=== PATIENT | male | born 1960 | race Caucasian/White ===

== ENCOUNTER → 2017-10-18 | Outpatient (CLI) | payer BC | END | disposition home or self-care (01) | LOC: CFH 09:34 | PROVIDERS: ATTEND Internal Medicine | DX: M51.16 Intervertebral disc disorders with radiculopathy, lumbar region (principal); M48.07 Spinal stenosis, lumbosacral region | CPT/HCPCS: 72148 ==

== ENCOUNTER 2019-06-12 11:59 | Emergency (ER) | payer BC, OTHER ==
[~2019-06-12] VITALS: Ht 170.2 cm; Wt 105.6 kg
[2019-06-12 16:32] VITALS: BP 125/74
== END 2019-06-12 16:35 | disposition home or self-care (01) ==
LOC: ED 15:57
DX: M51.16 Intervertebral disc disorders with radiculopathy, lumbar region (principal); E11.9 Type 2 diabetes mellitus without complications; M10.9 Gout, unspecified
CPT/HCPCS: 36415; 72148; 80048; 82040; 85025; 96372; 99284; J1885

== ENCOUNTER → 2020-10-06 | Outpatient (CLI) | payer BC ==
[~2020-10-06] MED LIST: GLIM2TAB7 PO; INDO50CA15 PO; SERT25TA3 PO
== END | disposition home or self-care (01) ==
LOC: CVU 08:29
PROVIDERS: ATTEND Internal Medicine Cardiovascular Disease
DX: I08.0 Rheumatic disorders of both mitral and aortic valves (principal); E78.5 Hyperlipidemia, unspecified; I11.9 Hypertensive heart disease without heart failure; R01.1 Cardiac murmur, unspecified; Z85.6 Personal history of leukemia
CPT/HCPCS: 93306; 93356

== ENCOUNTER → 2021-02-17 | Outpatient (CLI) | payer BC ==
[~2021-02-17] MED LIST changes: +SERT-331 PO; -SERT25TA3 PO
== END | disposition home or self-care (01) ==
LOC: CFH 08:29
PROVIDERS: ATTEND Nurse Practitioner Family
DX: I06.1 Rheumatic aortic insufficiency (principal); R01.1 Cardiac murmur, unspecified
CPT/HCPCS: 93306

== ENCOUNTER → 2021-04-12 | Outpatient (CLI) | payer BC ==
[~2021-04-12] MED LIST changes: +METOPROLOL 1 MG/ML, 5ML ONE; +VISIPAQUE 320 MG/ML, 150ML BOTTLE ONE
== END | disposition home or self-care (01) ==
LOC: CVU 09:48
PROVIDERS: ATTEND Internal Medicine Cardiovascular Disease
DX: C91.10 Chronic lymphocytic leukemia of B-cell type not having achieved remission (principal); I65.23 Occlusion and stenosis of bilateral carotid arteries; N32.89 Other specified disorders of bladder; I35.8 Other nonrheumatic aortic valve disorders; E11.9 Type 2 diabetes mellitus without complications; R01.1 Cardiac murmur, unspecified
CPT/HCPCS: 71275; 74174; 93880; Q9967

== ENCOUNTER 2021-04-26 08:30 | Day surgery (SDC) | payer BC ==
[~2021-04-26] VITALS: Ht 170.2 cm; Wt 105.3 kg
[~2021-04-26 08:30] MED LIST changes: -METOPROLOL 1 MG/ML, 5ML ONE; -VISIPAQUE 320 MG/ML, 150ML BOTTLE ONE
[2021-04-26 09:09] VITALS: BP 150/84
[2021-04-26] MEDS ORDERED: ALLO300T PO (09:17)
[2021-04-26] MEDS ORDERED: SITA25TA PO (09:17)
[2021-04-26] MEDS ORDERED: ENAL20TA9 PO (09:17)
[2021-04-26] MEDS ORDERED: METF500T17 PO (09:17)
[2021-04-26] MEDS ORDERED: ZOLP-413 PO (09:17)
[2021-04-26] MEDS ORDERED: IBRU140C PO (09:17)
[2021-04-26] MEDS ORDERED: ATOR20TA PO (09:17)
[2021-04-26] MEDS ORDERED: SODIUM CHLORIDE 0.9% 1,000 ML IV SCH (09:30)
[2021-04-26] MEDS ORDERED: LIDOCAINE-MPF 1%, 5ML ONE (09:45)
== END 2021-04-26 11:44 | disposition home or self-care (01) ==
LOC: OUT 08:30
PROVIDERS: ATTEND Specialist
DX: C91.10 Chronic lymphocytic leukemia of B-cell type not having achieved remission (principal); C77.0 Secondary and unspecified malignant neoplasm of lymph nodes of head, face and neck; I10 Essential (primary) hypertension; E11.9 Type 2 diabetes mellitus without complications; E78.5 Hyperlipidemia, unspecified; M10.9 Gout, unspecified; G47.30 Sleep apnea, unspecified; Z79.4 Long term (current) use of insulin; Z79.899 Other long term (current) drug therapy; Z98.890 Other specified postprocedural states; Z80.3 Family history of malignant neoplasm of breast; Z82.49 Family history of ischemic heart disease and other diseases of the circulatory system
CPT/HCPCS: 38505; 76942; 82962; 88305; 88341; 88342; J7030

== ENCOUNTER 2021-05-25 06:01 | Inpatient (IN) | payer BC ==
[~2021-05-25] VITALS: Ht 170.2 cm; Wt 105.6 kg
[~2021-05-25 06:01] MED LIST changes: +ALLO300T PO; +ASPI81TA45 PO; +ATOR20TA PO; +ATOR40TA78 PO; +ENAL20TA9 PO; +IBRU140C PO; +METF500T17 PO; +SITA25TA PO; +TICA90TA PO; +ZOLP-413 PO
[2021-05-25 06:27] VITALS: BP 103/72
[2021-05-25] MEDS ORDERED: SODIUM CHLORIDE 0.9% 1,000 ML IV ONE (06:30)
[2021-05-25] MEDS ORDERED: ONDANSETRON 2MG/ML, 2ML IV PRN (06:30)
[2021-05-25 06:43] LABS: MEAN CORPUSCULAR HEMOGLOBIN 31.9 pg (27.5-34.5); MEAN CORPUSCULAR HGB CONC 33.9 g/dL (33.2-36.2); MEAN PLATELET VOLUME 8.8 fL (7.4-10.4); PLATELET COUNT 104 x10^3/uL (130-400); RED CELL DISTRIBUTION WIDTH 14.3 % (9.4-14.8)
[2021-05-25] MEDS ORDERED: IBRU140C PO (06:48)
[2021-05-25 06:52] LABS: ALKALINE PHOSPHATASE 89 U/L (45-117); BILIRUBIN,TOTAL 0.7 mg/dL (0.2-1.0); TOTAL PROTEIN 7.3 g/dL (6.4-8.2)
[2021-05-25 06:57] LABS: ALANINE AMINOTRANSFERASE 28 U/L (12-78); ALBUMIN 4.1 g/dL (3.4-5.0); ANION GAP 2 mmol/L (5-15); CALCIUM 8.7 mg/dL (8.5-10.1); CHLORIDE 108 mmol/L (98-107); CREATININE 1.14 mg/dL (0.7-1.3)
[2021-05-25 06:58] LABS: INTERNATIONAL NORMALIZED RATIO 0.96 (0.93-1.1); PROTHROMBIN TIME 10.3 Seconds (9.6-11.5)
[2021-05-25 07:06] LABS: <RBC MORPHOLOGY> NORMAL; BAND#(MANUAL) 0.11 x10^3/uL; BANDS%(MANUAL) 1 % (0-7); LYMPH#(MANUAL) 7.81 x10^3/uL (1-3.4); LYMPHS% (MANUAL) 73 % (22-44); SEG#(MANUAL) 2.78 x10^3/uL (1.8-6.8); SEGS% (MANUAL) 26 % (42-75)
[2021-05-25 07:07] LABS: <PLATELET ESTIMATE> DECREASED; <PLT MORPHOLOGY> NORMAL PLT MORPH
[2021-05-25] MEDS ORDERED: FENTANYL PF 250 MCG/5ML ONE (07:09)
[2021-05-25] MEDS ORDERED: PROPOFOL 10 MG/ML, 20ML ONE (07:12)
[2021-05-25] MEDS ORDERED: SUCCINYLCHOLINE 20 MG/ML, 10ML ONE (07:12)
[2021-05-25] MEDS ORDERED: ROCURONIUM 10MG/ML,5ML ONE (07:12)
[2021-05-25] MEDS ORDERED: ONDANSETRON 2MG/ML, 2ML ONE (07:13)
[2021-05-25] MEDS ORDERED: PHENYLEPHRINE 10 MG/ML ONE (07:13)
[2021-05-25] MEDS ORDERED: HEPARIN 1,000 UNITS/ML, 10ML ONE ×2 (07:13)
[2021-05-25] MEDS ORDERED: CEFAZOLIN 1,000 MG ONE ×2 (07:13)
[2021-05-25] MEDS ORDERED: DEXAMETHASONE 4 MG/ML, 1ML ONE (07:13)
[2021-05-25] MEDS ORDERED: PROTAMINE SULFATE 10 MG/ML, 5ML ONE (07:34)
[2021-05-25] MEDS ORDERED: EPHEDRINE 50 MG/ML, 1ML ONE (07:34)
[2021-05-25] MEDS ORDERED: hydrALAzine 20 MG/ML, 1ML IVPush PRN (08:30)
[2021-05-25] MEDS ORDERED: DEXTROSE 50%, 50ML SYRINGE IVPush PRN (08:30)
[2021-05-25] MEDS ORDERED: DEXTROSE 4 GM TAB.CHEW PO PRN (08:30)
[2021-05-25] MEDS ORDERED: LABETALOL 20 MG/4 ML IVPush PRN (08:30)
[2021-05-25] MEDS ORDERED: GLUCAGON 1 MG IM PRN (08:30)
[2021-05-25] MEDS ORDERED: ACETAMINOPHEN 325 MG TABLET PO PRN (08:30)
[2021-05-25] MEDS ORDERED: HYDROcodone/APAP 5/325 TABLET PO PRN (08:30)
[2021-05-25] MEDS: ASPIRIN 81 MG TABLET EC PO SCH (09:00)
[2021-05-25] MEDS: ENALAPRIL 20MG TABLET PO SCH (09:00)
[2021-05-25] MEDS: TICAGRELOR 90 MG TABLET PO SCH ×2 (09:00→20:30)
[2021-05-25] MEDS: metFORMIN 500 MG TABLET PO SCH ×2 (09:00→20:31)
[2021-05-25] MEDS: SODIUM CHLORIDE FLUSH 10ML SYR IVF SCH ×2 (10:29→20:31)
[2021-05-25] MEDS: SERTRALINE 50MG TABLET PO SCH (11:07)
[2021-05-25] MEDS: LINAGLIPTIN 5 MG TAB PO SCH (11:09)
[2021-05-25] MEDS: GLIMEPIRIDE 4 MG TABLET PO SCH (11:10)
[2021-05-25 16:39] VITALS: BP 128/75
[2021-05-25] MEDS ORDERED: INSU200I4 SC (16:59)
[2021-05-25 18:44] VITALS: BP 145/76
[2021-05-25] MEDS ORDERED: IBRUTINIB 280 MG HOMEMEDPO SCH (19:30)
[2021-05-25] MEDS ORDERED: ZOLPIDEM 5MG TABLET PO SCH (21:00)
[2021-05-25] MEDS ORDERED: ATORVASTATIN 40 MG TABLET PO SCH (21:00)
[2021-05-26 02:00] VITALS: BP 151/63
[2021-05-26 05:38] LABS: MEAN CORPUSCULAR HEMOGLOBIN 31.8 pg (27.5-34.5); MEAN PLATELET VOLUME 9.1 fL (7.4-10.4); PLATELET COUNT 100 x10^3/uL (130-400); RED CELL DISTRIBUTION WIDTH 14.2 % (9.4-14.8)
[2021-05-26 05:57] LABS: ANION GAP 6 mmol/L (5-15); CALCIUM 8.7 mg/dL (8.5-10.1); CHLORIDE 102 mmol/L (98-107)
[2021-05-26 05:58] LABS: CREATININE 0.97 mg/dL (0.7-1.3)
[2021-05-26 06:16] LABS: LYMPH#(MANUAL) 8.91 x10^3/uL (1-3.4); LYMPHS% (MANUAL) 67 % (22-44); MONOS% (MANUAL) 3 % (2-9); REACTIVE LYMPHS % (MANUAL) 3 % (0-0); SEG#(MANUAL) 3.59 x10^3/uL (1.8-6.8); SEGS% (MANUAL) 27 % (42-75)
[2021-05-26 06:17] LABS: <PLATELET ESTIMATE> DECREASED; <PLT MORPHOLOGY> NORMAL PLT MORPH; <RBC MORPHOLOGY> NORMAL
[2021-05-26 07:21] VITALS: BP 151/74
[2021-05-26] MEDS: metFORMIN 500 MG TABLET PO SCH (08:56)
[2021-05-26] MEDS: ASPIRIN 81 MG TABLET EC PO SCH (08:56)
[2021-05-26] MEDS: ENALAPRIL 20MG TABLET PO SCH (08:57)
[2021-05-26] MEDS: GLIMEPIRIDE 4 MG TABLET PO SCH (08:59)
[2021-05-26] MEDS: LINAGLIPTIN 5 MG TAB PO SCH (08:59)
[2021-05-26] MEDS: TICAGRELOR 90 MG TABLET PO SCH (09:00)
[2021-05-26] MEDS: SERTRALINE 50MG TABLET PO SCH (09:01)
[2021-05-26] MEDS: SODIUM CHLORIDE FLUSH 10ML SYR IVF SCH (09:06)
[2021-05-26] MEDS ORDERED: ACET325T26 PO (09:21)
== END 2021-05-26 13:20 | disposition home or self-care (01) | DRG 266 ==
LOC: ORIP 06:01 → 5SO 09:41 → DCLOUNGE 05-26 13:10
PROVIDERS: ADMIT Internal Medicine Cardiovascular Disease; ATTEND Internal Medicine Cardiovascular Disease
PROC: B24BZZ4 Ultrasonography of Heart with Aorta, Transesophageal (ICD-10-PCS; 2021-05-25)
PROC: B3101ZZ Fluoroscopy of Thoracic Aorta using Low Osmolar Contrast (ICD-10-PCS; 2021-05-25)
PROC: 02RF38Z Replacement of Aortic Valve with Zooplastic Tissue, Percutaneous Approach (ICD-10-PCS; principal; 2021-05-25 07:30)
DX: I35.0 Nonrheumatic aortic (valve) stenosis (principal); Z00.6 Encounter for examination for normal comparison and control in clinical research program; I50.33 Acute on chronic diastolic (congestive) heart failure; Z20.822 Contact with and (suspected) exposure to COVID-19; E11.9 Type 2 diabetes mellitus without complications; E78.5 Hyperlipidemia, unspecified; I11.0 Hypertensive heart disease with heart failure; I25.10 Atherosclerotic heart disease of native coronary artery without angina pectoris; Z95.5 Presence of coronary angioplasty implant and graft
CPT/HCPCS: 33361; 36415; 76937; 80048; 80053; 82962; 85025; 85347; 85610; 86850; 86900; 86923; 87635; 93005; 93306; 93355; C1760; C1769; C1894; G0378; J0690; J1100; J1644; J2405; J2704; J2720; J3010; J0330; J2370; J7030; Q9967

== ENCOUNTER 2021-06-30 21:59 | Emergency (ER) | payer BC ==
[~2021-06-30] VITALS: Ht 170.2 cm; Wt 103.3 kg
[~2021-06-30 21:59] MED LIST changes: +ACET325T26 PO; +INSU200I4 SC
[2021-06-30 22:09] VITALS: BP 119/73
[2021-06-30] MEDS ORDERED: DIPHENHYDRAMINE 50 MG/ML, 1ML IVPush ONE (22:30)
[2021-06-30] MEDS ORDERED: SODIUM CHLORIDE FLUSH 10ML SYR IVF ONE (22:30)
[2021-06-30] MEDS ORDERED: methylPREDNISolone SOD SUCC 125 MG/2 ML IVPush ONE (22:30)
[2021-06-30] MEDS ORDERED: SODIUM CHLORIDE 0.9% 1,000ML IVBOLUS ONE (22:30)
--- NOTE | 2021-06-30 22:57 | NUR ---
CUSTOMER SERVICE ADMINISTRATOR: NIL X 1 WHEN CALLED FOR ROOM.
--- NOTE | 2021-06-30 22:57 | NUR ---
AUDITOR SUPERVISOR: THIS RN WALKING BACK IN DOOR FROM CALLING PT. FOR ROOM REGISTRATION STATED THAT HE SIGNED PAPERWORK AND WALKED OUT.
[2021-07-02] MEDS ORDERED: AMOX-367 PO (08:38)
[2021-07-02] MEDS ORDERED: OXYC5TAB2 PO (08:38)
[2021-07-16] MEDS ORDERED: OXYC5TAB2 PO (10:56)
== END 2021-06-30 23:01 | disposition left against medical advice (07) ==
LOC: ED 22:15
DX: R05 Cough (principal); Z85.818 Personal history of malignant neoplasm of other sites of lip, oral cavity, and pharynx
CPT/HCPCS: 99281

== ENCOUNTER 2021-07-04 11:22 | Inpatient (IN) | payer BC ==
[~2021-07-04] VITALS: Ht 170.2 cm; Wt 96.7 kg
[~2021-07-04 11:22] MED LIST changes: +AMOX-367 PO; +OXYC5TAB2 PO
--- NOTE | 2021-07-04 11:30 | NUR ---
PT HAS HX OF THROAT CANCER. PAINFUL AND DIFFICULT TO SWALLOW AND EAT, SENT BY IR FOR FEEDING TUBE. AIRWAY CLEAR. RESPIRATIONS EVEN AND EQUAL
[2021-07-04] MEDS ORDERED: SODIUM CHLORIDE FLUSH 10ML SYR IVF ONE (13:00)
[2021-07-04] MEDS ORDERED: SODIUM CHLORIDE 0.9% 1,000ML IVBOLUS ONE (13:00)
[2021-07-04 13:08] LABS: MEAN CORPUSCULAR HEMOGLOBIN 30.8 pg (27.5-34.5); MEAN CORPUSCULAR HGB CONC 34.1 g/dL (33.2-36.2); MEAN PLATELET VOLUME 7.7 fL (7.4-10.4); PLATELET COUNT 82 x10^3/uL (130-400); RED BLOOD COUNT 4.47 x10^6/uL (4.38-5.82); RED CELL DISTRIBUTION WIDTH 16.1 % (9.4-14.8)
[2021-07-04 13:15] LABS: ALANINE AMINOTRANSFERASE 36 U/L (12-78); ALBUMIN 3.5 g/dL (3.4-5.0); ANION GAP 9 mmol/L (5-15); CALCIUM 9.9 mg/dL (8.5-10.1); CHLORIDE 95 mmol/L (98-107)
[2021-07-04 13:18] LABS: ALKALINE PHOSPHATASE 149 U/L (45-117); BILIRUBIN,TOTAL 1.2 mg/dL (0.2-1.0); CREATININE 1.39 mg/dL (0.7-1.3); TOTAL PROTEIN 7.5 g/dL (6.4-8.2)
[2021-07-04] MEDS ORDERED: SODIUM CHLORIDE 0.9% 1,000 ML IV ONE (13:30)
[2021-07-04] MEDS ORDERED: BACLOFEN 10 MG TABLET PO PRN (14:00)
[2021-07-04] MEDS ORDERED: hydrALAzine 20 MG/ML, 1ML IVPush PRN (14:00)
[2021-07-04] MEDS ORDERED: ENALAPRILAT 1.25 MG/ML, 2ML IVPush PRN (14:00)
[2021-07-04] MEDS ORDERED: GUAIFENESIN/DM 200-20MG, 10ML UDC PO PRN (14:00)
[2021-07-04] MEDS ORDERED: BUTALB/APAP/CAFFEINE 50MG/325MG/40MG PO PRN ×2 (14:00)
[2021-07-04] MEDS ORDERED: ONDANSETRON ODT 4 MG PO PRN (14:00)
[2021-07-04] MEDS ORDERED: ACETAMINOPHEN 325 MG TABLET PO PRN (14:00)
[2021-07-04 14:08] LABS: BAND#(MANUAL) 0.05 x10^3/uL; BANDS%(MANUAL) 1 % (0-7); EOS#(MANUAL) 0.14 x10^3/uL (0.0-0.4); EOS% (MANUAL) 3 % (1-7); LYMPH#(MANUAL) 2.77 x10^3/uL (1-3.4); LYMPHS% (MANUAL) 59 % (22-44); MONOS#(MANUAL) 0.28 x10^3/uL (0.3-2.7); MONOS% (MANUAL) 6 % (2-9); REACTIVE LYMPHS # (MANUAL) 0.19 x10^3/uL (0-0); REACTIVE LYMPHS % (MANUAL) 4 % (0-0); SEG#(MANUAL) 1.27 x10^3/uL (1.8-6.8); SEGS% (MANUAL) 27 % (42-75)
[2021-07-04 14:10] LABS: <PLATELET ESTIMATE> DECREASED; <RBC MORPHOLOGY> NORMAL
[2021-07-04 14:11] LABS: <PLT MORPHOLOGY> NORMAL PLT MORPH
[2021-07-04 15:35] VITALS: BP 98/61
[2021-07-04 15:37] VITALS: BP 98/61
[2021-07-04] MEDS: INSULIN LISPRO 100 UNITS/ML, PEN SQ-INSULIN SCH ×2 (16:00→21:00)
[2021-07-04] MEDS: ENOXAPARIN 30 MG/0.3 ML SQ SCH ×2 (16:32→21:04)
[2021-07-04] MEDS: OXYcodone IR 5MG TABLET PO PRN ×2 (17:56→23:16)
[2021-07-04 18:43] VITALS: BP 117/70
[2021-07-04] MEDS: MELATONIN 5 MG TABLET PO SCH (20:51)
[2021-07-04] MEDS: TICAGRELOR 90 MG TABLET PO SCH (20:52)
[2021-07-04] MEDS: ATORVASTATIN 40 MG TABLET PO SCH (20:52)
[2021-07-04] MEDS: ZOLPIDEM 5MG TABLET PO SCH (20:52)
[2021-07-04] MEDS: D5%-0.45NACL+KCL 20MEQ 1,000 ML IV SCH (23:16)
[2021-07-05 01:42] VITALS: BP 126/71
[2021-07-05] MEDS: OXYcodone IR 5MG TABLET PO PRN ×5 (02:52→21:09)
[2021-07-05 05:28] LABS: MEAN CORPUSCULAR HEMOGLOBIN 31.3 pg (27.5-34.5); MEAN CORPUSCULAR HGB CONC 34.6 g/dL (33.2-36.2); MEAN PLATELET VOLUME 7.7 fL (7.4-10.4); PLATELET COUNT 71 x10^3/uL (130-400); RED BLOOD COUNT 4.05 x10^6/uL (4.38-5.82); RED CELL DISTRIBUTION WIDTH 16.2 % (9.4-14.8)
[2021-07-05 05:36] LABS: ALBUMIN 3.3 g/dL (3.4-5.0); ANION GAP 8 mmol/L (5-15); CALCIUM 9.4 mg/dL (8.5-10.1); CHLORIDE 101 mmol/L (98-107)
[2021-07-05 05:37] LABS: CREATININE 1.16 mg/dL (0.7-1.3)
[2021-07-05 06:00] LABS: BAND#(MANUAL) 0.04 x10^3/uL; BANDS%(MANUAL) 1 % (0-7); EOS#(MANUAL) 0.08 x10^3/uL (0.0-0.4); EOS% (MANUAL) 2 % (1-7); LYMPH#(MANUAL) 2.42 x10^3/uL (1-3.4); LYMPHS% (MANUAL) 62 % (22-44); MONOS#(MANUAL) 0.16 x10^3/uL (0.3-2.7); MONOS% (MANUAL) 4 % (2-9); REACTIVE LYMPHS # (MANUAL) 0.16 x10^3/uL (0-0); REACTIVE LYMPHS % (MANUAL) 4 % (0-0); SEG#(MANUAL) 1.05 x10^3/uL (1.8-6.8); SEGS% (MANUAL) 27 % (42-75)
[2021-07-05 06:01] LABS: ANISOCYTOSIS 1+
[2021-07-05 06:02] LABS: <PLATELET ESTIMATE> DECREASED; <PLT MORPHOLOGY> NORMAL PLT MORPH
[2021-07-05 06:45] VITALS: BP 137/82
[2021-07-05] MEDS: INSULIN LISPRO 100 UNITS/ML, PEN SQ-INSULIN SCH ×4 (07:00→21:10)
[2021-07-05] MEDS: ONDANSETRON 2MG/ML, 2ML IVPush PRN ×2 (08:41→21:12)
[2021-07-05] MEDS: TICAGRELOR 90 MG TABLET PO SCH (09:00)
[2021-07-05] MEDS: SENNA/DOCUSATE TABLET PO SCH (09:00)
[2021-07-05] MEDS: D5%-0.45NACL+KCL 20MEQ 1,000 ML IV SCH ×2 (09:35→19:10)
[2021-07-05] MEDS: ALLOPURINOL 300 MG TABLET PO SCH (09:35)
[2021-07-05] MEDS: SERTRALINE 50MG TABLET PO SCH (09:36)
[2021-07-05] MEDS: ENALAPRIL 20MG TABLET PO SCH (09:36)
[2021-07-05 12:31] VITALS: BP 123/72
[2021-07-05] MEDS ORDERED: HEPARIN 5,000 UNITS/ML, 1ML IV ONE (13:00)
[2021-07-05] MEDS ORDERED: HEPARIN 5,000 UNITS/ML, 1ML IV PRN (13:00)
[2021-07-05] MEDS: HEPARIN 25,000 UNITS/250ML PMX 250 ML IV PRN (14:04)
[2021-07-05 18:39] VITALS: BP 151/82
[2021-07-05] MEDS: MELATONIN 5 MG TABLET PO SCH (21:09)
[2021-07-05] MEDS: ATORVASTATIN 40 MG TABLET PO SCH (21:09)
[2021-07-05] MEDS: ZOLPIDEM 5MG TABLET PO SCH (21:09)
[2021-07-06 01:14] VITALS: BP 150/80
[2021-07-06] MEDS: OXYcodone IR 5MG TABLET PO PRN ×5 (01:51→22:07)
[2021-07-06 02:52] LABS: MEAN CORPUSCULAR HEMOGLOBIN 31.4 pg (27.5-34.5); MEAN CORPUSCULAR HGB CONC 34.7 g/dL (33.2-36.2); MEAN PLATELET VOLUME 7.1 fL (7.4-10.4); PLATELET COUNT 68 x10^3/uL (130-400); RED BLOOD COUNT 3.91 x10^6/uL (4.38-5.82); RED CELL DISTRIBUTION WIDTH 16.2 % (9.4-14.8)
[2021-07-06 03:02] LABS: ANION GAP 8 mmol/L (5-15); CALCIUM 8.9 mg/dL (8.5-10.1); CHLORIDE 99 mmol/L (98-107); CREATININE 1.09 mg/dL (0.7-1.3)
[2021-07-06 03:34] LABS: LYMPH#(MANUAL) 2.07 x10^3/uL (1-3.4); LYMPHS% (MANUAL) 61 % (22-44); MONOS% (MANUAL) 6 % (2-9); SEG#(MANUAL) 1.12 x10^3/uL (1.8-6.8); SEGS% (MANUAL) 33 % (42-75)
[2021-07-06 03:35] LABS: <PLATELET ESTIMATE> DECREASED; <PLT MORPHOLOGY> NORMAL PLT MORPH; <RBC MORPHOLOGY> NORMAL
[2021-07-06] MEDS: D5%-0.45NACL+KCL 20MEQ 1,000 ML IV SCH ×2 (05:05→17:13)
[2021-07-06 07:16] VITALS: BP 137/81
[2021-07-06] MEDS: ENALAPRIL 20MG TABLET PO SCH (09:54)
[2021-07-06] MEDS: ALLOPURINOL 300 MG TABLET PO SCH (09:54)
[2021-07-06] MEDS: SERTRALINE 50MG TABLET PO SCH (09:54)
[2021-07-06] MEDS: SENNA/DOCUSATE TABLET PO SCH (09:55)
[2021-07-06] MEDS: INSULIN LISPRO 100 UNITS/ML, PEN SQ-INSULIN SCH ×4 (09:56→20:59)
[2021-07-06 12:42] VITALS: BP 131/67
[2021-07-06] MEDS: HEPARIN 25,000 UNITS/250ML PMX 250 ML IV PRN (16:04)
[2021-07-06] MEDS ORDERED: BISACODYL 10 MG SUPP PR ONE (17:00)
[2021-07-06] MEDS ORDERED: HYDROmorphone 1 MG/ML, 1ML INJ IM PRN (17:30)
[2021-07-06 19:51] VITALS: BP 96/60
[2021-07-06] MEDS: ZOLPIDEM 5MG TABLET PO SCH (20:58)
[2021-07-06] MEDS: MELATONIN 5 MG TABLET PO SCH (20:58)
[2021-07-06] MEDS: ATORVASTATIN 40 MG TABLET PO SCH (20:58)
[2021-07-06] MEDS ORDERED: HYDROmorphone 1 MG/ML, 1ML INJ IVPush PRN (21:30)
[2021-07-07 00:31] VITALS: BP 102/66
[2021-07-07] MEDS ORDERED: HYDROmorphone 2 MG/ML, 1ML ONE (03:04)
[2021-07-07 05:19] LABS: MEAN CORPUSCULAR HEMOGLOBIN 31.2 pg (27.5-34.5); MEAN CORPUSCULAR HGB CONC 34.3 g/dL (33.2-36.2); MEAN PLATELET VOLUME 7.7 fL (7.4-10.4); PLATELET COUNT 70 x10^3/uL (130-400); RED BLOOD COUNT 3.97 x10^6/uL (4.38-5.82); RED CELL DISTRIBUTION WIDTH 16.5 % (9.4-14.8)
[2021-07-07 05:29] LABS: ALBUMIN 3.2 g/dL (3.4-5.0); ANION GAP 7 mmol/L (5-15); CALCIUM 9.4 mg/dL (8.5-10.1); CHLORIDE 97 mmol/L (98-107); CREATININE 1.11 mg/dL (0.7-1.3)
[2021-07-07 06:36] LABS: BAND#(MANUAL) 0.11 x10^3/uL; BANDS%(MANUAL) 3 % (0-7); BASOS#(MANUAL) 0.04 x10^3/uL (0-0.1); BASOS% (MANUAL) 1 % (0-1); LYMPH#(MANUAL) 2.49 x10^3/uL (1-3.4); LYMPHS% (MANUAL) 71 % (22-44); MONOS#(MANUAL) 0.14 x10^3/uL (0.3-2.7); MONOS% (MANUAL) 4 % (2-9); SEG#(MANUAL) 0.74 x10^3/uL (1.8-6.8)
[2021-07-07 06:37] LABS: <PLATELET ESTIMATE> DECREASED; <PLT MORPHOLOGY> NORMAL PLT MORPH; SMUDGE CELLS 1+
[2021-07-07 06:38] LABS: SEGS% (MANUAL) 21 % (42-75)
[2021-07-07 06:39] LABS: ANISOCYTOSIS 1+
[2021-07-07 07:00] VITALS: BP 136/78
[2021-07-07] MEDS: INSULIN LISPRO 100 UNITS/ML, PEN SQ-INSULIN SCH ×4 (07:40→21:15)
[2021-07-07] MEDS: OXYcodone IR 5MG TABLET PO PRN ×3 (08:45→19:50)
[2021-07-07] MEDS: SENNA/DOCUSATE TABLET PO SCH (09:49)
[2021-07-07] MEDS: ENALAPRIL 20MG TABLET PO SCH (09:49)
[2021-07-07] MEDS: SERTRALINE 50MG TABLET PO SCH (09:50)
[2021-07-07] MEDS: ALLOPURINOL 300 MG TABLET PO SCH (09:50)
[2021-07-07] MEDS: BENZOCAINE AEROSOL SPRAY 20%, 60ML TP PRN ×3 (11:23→21:17)
[2021-07-07 12:41] VITALS: BP 126/73
[2021-07-07] MEDS: HEPARIN 25,000 UNITS/250ML PMX 250 ML IV PRN (13:27)
[2021-07-07] MEDS: SODIUM CHLORIDE 0.9% 1,000 ML IV SCH (15:30)
[2021-07-07 19:47] VITALS: BP 116/67
[2021-07-07] MEDS: ZOLPIDEM 5MG TABLET PO SCH (21:12)
[2021-07-07] MEDS: MELATONIN 5 MG TABLET PO SCH (21:13)
[2021-07-07] MEDS: ATORVASTATIN 40 MG TABLET PO SCH (21:13)
[2021-07-08] MEDS: SODIUM CHLORIDE 0.9% 1,000 ML IV SCH ×2 (01:05→11:05)
[2021-07-08] MEDS: OXYcodone IR 5MG TABLET PO PRN ×6 (01:06→23:27)
[2021-07-08] MEDS: BENZOCAINE AEROSOL SPRAY 20%, 60ML TP PRN ×3 (01:06→08:37)
[2021-07-08 01:12] VITALS: BP 127/74
[2021-07-08 06:58] VITALS: BP 135/75
[2021-07-08] MEDS: ALLOPURINOL 300 MG TABLET PO SCH (08:28)
[2021-07-08] MEDS: ENALAPRIL 20MG TABLET PO SCH (08:29)
[2021-07-08] MEDS: SERTRALINE 50MG TABLET PO SCH (08:38)
[2021-07-08] MEDS: SENNA/DOCUSATE TABLET PO SCH (08:38)
[2021-07-08] MEDS: INSULIN LISPRO 100 UNITS/ML, PEN SQ-INSULIN SCH ×4 (08:39→21:47)
[2021-07-08 12:39] VITALS: BP 130/71
[2021-07-08] MEDS: HEPARIN 25,000 UNITS/250ML PMX 250 ML IV PRN (14:43)
[2021-07-08 19:10] VITALS: BP 135/70
[2021-07-08] MEDS: ATORVASTATIN 40 MG TABLET PO SCH (20:57)
[2021-07-08] MEDS: MELATONIN 5 MG TABLET PO SCH (20:57)
[2021-07-08] MEDS: ZOLPIDEM 5MG TABLET PO SCH (20:57)
[2021-07-09] VITALS (8 sets, daily range): BP systolic 130–165; BP diastolic 62–76
[2021-07-09] MEDS: SODIUM CHLORIDE 0.9% 1,000 ML IV SCH ×3 (00:06→22:26)
[2021-07-09] MEDS: OXYcodone IR 5MG TABLET PO PRN (03:50)
[2021-07-09] MEDS: INSULIN LISPRO 100 UNITS/ML, PEN SQ-INSULIN SCH ×4 (07:40→21:34)
[2021-07-09] MEDS: ONDANSETRON 2MG/ML, 2ML IVPush PRN (07:46)
[2021-07-09] MEDS: SENNA/DOCUSATE TABLET PO SCH (09:00)
[2021-07-09] MEDS: ALLOPURINOL 300 MG TABLET PO SCH (09:37)
[2021-07-09] MEDS: ENALAPRIL 20MG TABLET PO SCH (09:37)
[2021-07-09] MEDS: SERTRALINE 50MG TABLET PO SCH (09:37)
[2021-07-09 11:47] LABS: MEAN PLATELET VOLUME 7.8 fL (7.4-10.4); PLATELET COUNT 99 x10^3/uL (130-400); RED CELL DISTRIBUTION WIDTH 16.4 % (9.4-14.8)
[2021-07-09] MEDS ORDERED: LIDOCAINE 1%, 20ML ONE (12:06)
[2021-07-09] MEDS ORDERED: FLUMAZENIL 0.1 MG/1 ML, 5ML ONE (12:09)
[2021-07-09] MEDS ORDERED: FENTANYL PF 100 MCG/2ML ONE (12:09)
[2021-07-09] MEDS ORDERED: MIDAZOLAM 1 MG/ML, 5ML ONE (12:09)
[2021-07-09] MEDS ORDERED: NALOXONE 1 MG/ML, 2ML ONE (12:10)
[2021-07-09] MEDS ORDERED: CEFAZOLIN PMX 1GM/50ML 50 ML ONE (12:13)
[2021-07-09] MEDS ORDERED: CEFAZOLIN PMX 1GM/50ML 50 ML IV ONE (12:30)
[2021-07-09 13:05] LABS: BAND#(MANUAL) 0.06 x10^3/uL; BANDS%(MANUAL) 2 % (0-7); EOS#(MANUAL) 0.06 x10^3/uL (0.0-0.4); EOS% (MANUAL) 2 % (1-7); LYMPH#(MANUAL) 1.92 x10^3/uL (1-3.4); LYMPHS% (MANUAL) 64 % (22-44); MONOS#(MANUAL) 0.15 x10^3/uL (0.3-2.7); MONOS% (MANUAL) 5 % (2-9); SEG#(MANUAL) 0.81 x10^3/uL (1.8-6.8); SEGS% (MANUAL) 27 % (42-75)
[2021-07-09 13:06] LABS: <PLATELET ESTIMATE> DECREASED; <PLT MORPHOLOGY> NORMAL PLT MORPH; ANISOCYTOSIS 1+
[2021-07-09] MEDS: ATORVASTATIN 40 MG TABLET PO SCH (21:28)
[2021-07-09] MEDS: MELATONIN 5 MG TABLET PO SCH (21:29)
[2021-07-09] MEDS: TICAGRELOR 90 MG TABLET PO SCH (21:29)
[2021-07-09] MEDS: ZOLPIDEM 5MG TABLET PO SCH (21:29)
[2021-07-10 00:20] VITALS: BP 125/78
[2021-07-10 07:25] VITALS: BP 121/60
[2021-07-10] MEDS: SERTRALINE 50MG TABLET PO SCH (07:59)
[2021-07-10] MEDS: ALLOPURINOL 300 MG TABLET PO SCH (07:59)
[2021-07-10] MEDS: TICAGRELOR 90 MG TABLET PO SCH ×2 (08:00→21:40)
[2021-07-10] MEDS: ENALAPRIL 20MG TABLET PO SCH (08:00)
[2021-07-10] MEDS: INSULIN LISPRO 100 UNITS/ML, PEN SQ-INSULIN SCH ×4 (08:01→21:54)
[2021-07-10] MEDS: SENNA/DOCUSATE TABLET PO SCH (08:04)
[2021-07-10] MEDS: SODIUM CHLORIDE 0.9% 1,000 ML IV SCH (11:10)
[2021-07-10] MEDS ORDERED: BENZ57SP TP (12:05)
[2021-07-10 14:56] VITALS: BP 120/63
[2021-07-10 20:42] VITALS: BP 130/83
[2021-07-10] MEDS: ATORVASTATIN 40 MG TABLET PO SCH (21:40)
[2021-07-10] MEDS: ZOLPIDEM 5MG TABLET PO SCH (21:40)
[2021-07-10] MEDS: MELATONIN 5 MG TABLET PO SCH (21:40)
[2021-07-11] MEDS: GUAIFENESIN/COD200MG-20MG/10ML LIQUID PO PRN (00:59)
[2021-07-11 02:00] VITALS: BP 127/79
[2021-07-11 04:00] LABS: MEAN CORPUSCULAR HEMOGLOBIN 31.2 pg (27.5-34.5); MEAN CORPUSCULAR HGB CONC 34.4 g/dL (33.2-36.2); MEAN PLATELET VOLUME 7.8 fL (7.4-10.4); PLATELET COUNT 78 x10^3/uL (130-400); RED BLOOD COUNT 3.37 x10^6/uL (4.38-5.82); RED CELL DISTRIBUTION WIDTH 16.9 % (9.4-14.8)
[2021-07-11 04:04] LABS: ANION GAP 6 mmol/L (5-15); CALCIUM 9.6 mg/dL (8.5-10.1); CHLORIDE 96 mmol/L (98-107); CREATININE 0.93 mg/dL (0.7-1.3)
[2021-07-11 04:56] LABS: BAND#(MANUAL) 0.11 x10^3/uL; BANDS%(MANUAL) 5 % (0-7); EOS#(MANUAL) 0.02 x10^3/uL (0.0-0.4); EOS% (MANUAL) 1 % (1-7); LYMPH#(MANUAL) 1.39 x10^3/uL (1-3.4); LYMPHS% (MANUAL) 63 % (22-44); MONOS#(MANUAL) 0.09 x10^3/uL (0.3-2.7); MONOS% (MANUAL) 4 % (2-9); SEG#(MANUAL) 0.59 x10^3/uL (1.8-6.8); SEGS% (MANUAL) 27 % (42-75)
[2021-07-11 05:00] LABS: ANISOCYTOSIS 1+; OVALOCYTES 1+
[2021-07-11 05:01] LABS: <PLATELET ESTIMATE> DECREASED; <PLT MORPHOLOGY> NORMAL PLT MORPH; MICROCYTOSIS 1+
[2021-07-11 08:06] VITALS: BP 105/66
[2021-07-11] MEDS: INSULIN LISPRO 100 UNITS/ML, PEN SQ-INSULIN SCH ×4 (08:56→21:14)
[2021-07-11] MEDS: SERTRALINE 50MG TABLET PO SCH (09:29)
[2021-07-11] MEDS: GLIMEPIRIDE 4 MG TABLET PO SCH (09:30)
[2021-07-11] MEDS: metFORMIN 500 MG TABLET PO SCH ×2 (09:30→21:16)
[2021-07-11] MEDS: ENALAPRIL 20MG TABLET PO SCH (09:30)
[2021-07-11] MEDS: ALLOPURINOL 300 MG TABLET PO SCH (09:30)
[2021-07-11] MEDS: TICAGRELOR 90 MG TABLET PO SCH ×2 (09:31→21:15)
[2021-07-11] MEDS: SENNA/DOCUSATE TABLET PO SCH (09:31)
[2021-07-11 14:41] VITALS: BP 124/57
[2021-07-11] MEDS: JARDIANCE 25 MG PO SCH (15:30)
[2021-07-11] MEDS: OXYcodone IR 5MG TABLET PO PRN (16:49)
[2021-07-11 19:59] VITALS: BP 145/71
[2021-07-11] MEDS: ATORVASTATIN 40 MG TABLET PO SCH (21:15)
[2021-07-11] MEDS: ZOLPIDEM 5MG TABLET PO SCH (21:16)
[2021-07-11] MEDS: MELATONIN 5 MG TABLET PO SCH (21:16)
[2021-07-12] MEDS: OXYcodone IR 5MG TABLET PO PRN ×2 (00:25→10:40)
[2021-07-12 00:26] VITALS: BP 137/71
[2021-07-12] MEDS: INSULIN LISPRO 100 UNITS/ML, PEN SQ-INSULIN SCH ×3 (07:30→16:30)
[2021-07-12] MEDS: JARDIANCE 25 MG PO SCH (09:00)
[2021-07-12] MEDS: SERTRALINE 50MG TABLET PO SCH (09:15)
[2021-07-12] MEDS: ALLOPURINOL 300 MG TABLET PO SCH (09:16)
[2021-07-12] MEDS: metFORMIN 500 MG TABLET PO SCH (09:16)
[2021-07-12] MEDS: ENALAPRIL 20MG TABLET PO SCH (09:16)
[2021-07-12] MEDS: TICAGRELOR 90 MG TABLET PO SCH (09:16)
[2021-07-12] MEDS: SENNA/DOCUSATE TABLET PO SCH (09:16)
[2021-07-12] MEDS: GLIMEPIRIDE 4 MG TABLET PO SCH (09:16)
[2021-07-12 09:18] VITALS: BP 150/82
[2021-07-12] MEDS: GUAIFENESIN/COD200MG-20MG/10ML LIQUID PO PRN ×2 (10:35→18:36)
[2021-07-12] MEDS ORDERED: LACTULOSE 20 GM/30 ML UDC PO PRN (13:30)
[2021-07-12 14:56] VITALS: BP 110/68
[2021-07-12] MEDS ORDERED: POLY17PO5 PO (15:33)
[2021-07-16] MEDS ORDERED: OXYC5TAB2 PO (10:56)
[2021-07-23] MEDS ORDERED: OXYC5TAB2 PO (08:26)
== END 2021-07-12 18:48 | disposition home or self-care (01) | DRG 146 ==
LOC: ED 14:08 → 4NE 14:57 → 4NW 07-06 01:59
PROVIDERS: ADMIT Internal Medicine; ATTEND Internal Medicine
PROC: 0DH63UZ Insertion of Feeding Device into Stomach, Percutaneous Approach (ICD-10-PCS; principal; 2021-07-09)
PROC: BD12ZZZ Fluoroscopy of Stomach (ICD-10-PCS; 2021-07-09)
DX: C76.0 Malignant neoplasm of head, face and neck (principal); N17.0 Acute kidney failure with tubular necrosis; E87.1 Hypo-osmolality and hyponatremia; E44.1 Mild protein-calorie malnutrition; D69.6 Thrombocytopenia, unspecified; R13.10 Dysphagia, unspecified; E11.9 Type 2 diabetes mellitus without complications; E78.5 Hyperlipidemia, unspecified; H54.62 Unqualified visual loss, left eye, normal vision right eye; I10 Essential (primary) hypertension; I25.10 Atherosclerotic heart disease of native coronary artery without angina pectoris; K59.00 Constipation, unspecified; M60.9 Myositis, unspecified; K58.9 Irritable bowel syndrome, unspecified; M10.9 Gout, unspecified; R59.1 Generalized enlarged lymph nodes; I95.9 Hypotension, unspecified; C01 Malignant neoplasm of base of tongue; N28.89 Other specified disorders of kidney and ureter; Z85.810 Personal history of malignant neoplasm of tongue; Z85.89 Personal history of malignant neoplasm of other organs and systems; Z87.891 Personal history of nicotine dependence; Z93.1 Gastrostomy status; Z95.2 Presence of prosthetic heart valve; Z95.5 Presence of coronary angioplasty implant and graft; Z68.33 Body mass index [BMI] 33.0-33.9, adult
CPT/HCPCS: 36415; 74018; 74340; 99285; J3490; 49440; 71045; 77300; 77334; 77336; 77338; 77386; 80048; 80053; 80069; 82962; 83735; 84100; 85025; 85520; 86850; 86900; 93306; 99156; 99157; C1725; G0378; J0690; J1170; J1644; J1650; J2250; J2405; J3010; C1729; C1769; J1815; J2310; J3480; J7030; P9035; Q0161